=== PATIENT | female | born 2005 | race Hispanic/Latino ===

== ENCOUNTER 2023-09-22 11:18 | Emergency (ER) | payer OTHER ==
[~2023-09-22] VITALS: Ht 172.7 cm; Wt 72.8 kg
[~2023-09-22 11:18] MED LIST: HYDR1CAP25 PO; LEXA1TAB2 PO
[2023-09-22] MEDS: PERCOCET 5MG/325MG TAB PO ONE (13:03)
[2023-09-22] MEDS ORDERED: HYDR-3713 PO (14:30)
[2023-09-22 14:47] VITALS: BP 133/77; TEMP 97.9; O2SAT 99
== END 2023-09-22 14:48 | disposition home or self-care (01) ==
LOC: M ED 11:18
DX: S20.219A Contusion of unspecified front wall of thorax, initial encounter (principal); F17.200 Nicotine dependence, unspecified, uncomplicated; V19.9XXA Pedal cyclist (driver) (passenger) injured in unspecified traffic accident, initial encounter; Y92.410 Unspecified street and highway as the place of occurrence of the external cause; Y93.55 Activity, bike riding; Y99.9 Unspecified external cause status; Z79.1 Long term (current) use of non-steroidal anti-inflammatories (NSAID); Z79.899 Other long term (current) drug therapy

== ENCOUNTER → 2025-05-22 | Outpatient (CLI) | payer OTHER ==
[~2025-05-22] MED LIST changes: +HYDR-3713 PO
== END ==
LOC: M CARPUL 10:42
PROVIDERS: ATTEND Student in an Organized Health Care Education/Training Program
DX: R06.02 Shortness of breath (principal); J98.4 Other disorders of lung